=== PATIENT | female | born 1985 | race Caucasian/White ===

== ENCOUNTER 2023-02-23 15:56 | Emergency (ER) | payer MEDICAID ==
[~2023-02-23] VITALS: Ht 172.7 cm; Wt 79.4 kg
[2023-02-23] MEDS ORDERED: BUPR-319 PO (16:20)
[2023-02-23] MEDS ORDERED: ONDA4TAB5 PO (16:20)
[2023-02-23] MEDS ORDERED: LISD40CA PO (16:20)
[2023-02-23] MEDS ORDERED: LORA0.5T48 PO (16:20)
[2023-02-23] MEDS ORDERED: [UNRECOGNIZED DRUG - OTHER] PO (16:20)
[2023-02-23 16:36] LABS: HEMATOCRIT 40.8 % (31.2-41.9); MEAN CORPUSCULAR HEMOGLOBIN 30.3 uug (24.7-32.8); MEAN CORPUSCULAR VOLUME 91.8 fL (75.5-95.3); PLATELET COUNT (AUTO) 198 K/uL (179-408)
[2023-02-23 16:44] LABS: CREATININE 0.7 mg/dL (0.6-1.3); POTASSIUM 3.5 mmol/L (3.5-5.1)
[2023-02-23 16:56] LABS: BILIRUBIN,DIRECT 9.8 mg/dL (0.0-0.2); BILIRUBIN,TOTAL 11.7 mg/dL (0.2-1.0); TOTAL PROTEIN, SERUM 5.3 g/dL (6.4-8.2)
[2023-02-23] MEDS ORDERED: ONDANSETRON ODT 4 MG TAB.RAPDIS ONE (16:58)
[2023-02-23] MEDS ORDERED: ONDANSETRON ODT 4 MG TAB.RAPDIS SL ONE (17:00)
[2023-02-23 19:05] VITALS: BP 111/96
== END 2023-02-23 19:06 | disposition home or self-care (01) ==
LOC: ER 15:56
DX: K76.9 Liver disease, unspecified (principal); Z88.2 Allergy status to sulfonamides; Z79.899 Other long term (current) drug therapy
CPT/HCPCS: 36415; 83690; 85025; 85730; A4663; Q0162